=== PATIENT | male | born 1965 | race Caucasian/White ===

== ENCOUNTER 2018-03-04 13:44 | Emergency (ER) | payer BC ==
[2018-03-04 13:46] VITALS: BP 178/88; PULSE 92; RESP 18; TEMP 97.5; O2SAT 96
[2018-03-04] MEDS ORDERED: LISI-515 PO (14:09)
[2018-03-04] MEDS ORDERED: AMLO1POW4 PO (14:09)
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
[2018-03-04] MEDS ORDERED: ONDANSETRON HCL 4 MG/2 ML VIAL IV PUSH ONE (14:15)
[2018-03-04] MEDS ORDERED: MORPHINE SULFATE 4 MG/ML INJ IV PUSH ONE (14:15)
[2018-03-04] MEDS ORDERED: LORazepam 2 MG/ML VIAL IV PUSH ONE (14:30)
[2018-03-04 14:32] VITALS: RESP 18
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
== END 2018-03-04 16:11 | disposition home or self-care (01) ==
LOC: NEPE 13:44
DX: S43.005A Unspecified dislocation of left shoulder joint, initial encounter (principal); S00.81XA Abrasion of other part of head, initial encounter; I10 Essential (primary) hypertension; W18.00XA Striking against unspecified object with subsequent fall, initial encounter; Y92.832 Beach as the place of occurrence of the external cause
CPT/HCPCS: 23650; 73030; 96374; 96375; 99283; J2060; J2270; J2405